=== PATIENT | male | born 1965 | race African-American/Black ===

== ENCOUNTER 2019-03-19 16:05 | Emergency (ER) | payer SELFPAY ==
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
[2019-03-19] MEDS ORDERED: Lidocaine 2% Viscous Solution 15 ML Cup PO ONE (16:47)
--- NOTE | 2019-03-19 18:26 | CR ---
HISTORY: Cough and sore throat. COMPARISON: None available. FINDINGS: AP and lateral views of the soft tissues of the neck were obtained. The airway structures are normal in appearance. The epiglottis is normal in appearance. There is no displacement of the trachea. No radiopaque foreign bodies are evident. The prevertebral soft tissues and cervical spine are normal in appearance. The cervical spine that is seen is normal in appearance. The apices of the lungs are clear. IMPRESSION: Normal two-view soft tissue examination of the neck. Dictated by Quintin Estrada MD @ Mar 19 2019 6:25PM Signed by Dr. Quintin Estrada @ Mar 19 2019 6:26PM
--- NOTE | 2019-03-19 18:26 | CR ---
INDICATION: Cough for 2 days. COMPARISON: None available. FINDINGS: PA and lateral views of the chest were obtained. The lungs are clear. No focal or diffuse infiltrates are present. The heart is normal in size. The mediastinum is normal in appearance. There is minimal scoliosis of the mid thoracic spine convex towards the right. The osseous structures are otherwise normal in appearance for the patient`s age. IMPRESSION: No active disease seen in the chest. Dictated by Quintin Estrada MD @ Mar 19 2019 6:24PM Signed by Dr. Quintin Estrada @ Mar 19 2019 6:25PM
== END 2019-03-19 18:40 | disposition home or self-care (01) ==
LOC: MW.ED 16:05
DX: M54.2 Cervicalgia (principal); R13.10 Dysphagia, unspecified; J06.9 Acute upper respiratory infection, unspecified; F17.210 Nicotine dependence, cigarettes, uncomplicated
CPT/HCPCS: 70360; 71046; 87081; 87804; 87880; 99283; A9270

== ENCOUNTER 2019-03-20 21:29 | Emergency (ER) | payer SELFPAY ==
[2019-03-20] MEDS ORDERED: Albuterol/Ipratropium 3.0-0.5 MG/3 ML Neb Soln NEB ONE (21:54)
[2019-03-20] MEDS ORDERED: methylPREDNISolone Sodium Succinate 125 MG/2 ML SDV IVPUSH ONE (21:54)
[2019-03-20] MEDS ORDERED: Sodium Chloride 0.9% 1,000 ML IV SCH (22:00)
[2019-03-20 22:45] LABS: CHLORIDE,CL 97 mmol/L (98-107); SODIUM,NA 135 mmol/L (136-148)
[2019-03-20] MEDS ORDERED: cefTRIAXone 1 GM Vial IM ONE (22:47)
[2019-03-20] MEDS ORDERED: cefTRIAXone 1 GM in Premix Bag 1 BAG IV ONE (23:07)
--- NOTE | 2019-03-20 23:11 | CR ---
Indication: Chest pain, shortness of breath Technique: Chest 1 view Comparison: March 19, 2019 Findings/Impression: Cardiovascular and mediastinum: Heart size and vasculature are normal in caliber and appearance. Mediastinum is within normal limits. Lungs and pleural space: Lungs are clear. No sign of infiltrate or mass. No sign of pleural effusion. No pneumothorax. Bones and soft tissues: Mild dextroscoliosis. No acute findings. Dictated by Rosemary Lopez MD @ Mar 20 2019 11:08PM Signed by Dr. Rosemary Lopez @ Mar 20 2019 11:09PM
--- NOTE | 2019-03-20 23:26 | EDM.PDOC ---
ED HPI GENERAL MEDICAL PROBLEM - General Chief Complaint: Respiratory Problem Stated Complaint: COUGH,SORE THROAT Time Seen by Provider: 03/20/19 23:26 Source of Information: Reports: Patient - History of Present Illness INITIAL COMMENTS - FREE TEXT/NARRATIVE: HISTORY AND PHYSICAL: History of present illness: [[place] presents with sore throat and complaint of shortness breath was provided DuoNeb and Solu-Medrol which may have alleviated symptoms are improved I also provided a gram of Rocephin,, and does have sore throat and fever although the shortness of breath is over exaggerated as on a prolonged stay Avelox by any sitting comfortably playing on his telephone however when I walked into his room he begins labored breathing and arising as if in disc comfort Is resolved after discussion of these facts however patient does have pharyngitis and will be provided antibiotic therapy Muffled voice drooling or trismus] Review of systems: As per history of present illness and below otherwise all systems reviewed and negative. Past medical history: As per history of present illness and as reviewed below otherwise noncontributory. Surgical history: As per history of present illness and as reviewed below otherwise noncontributory. Social history: No reported history of drug or alcohol abuse. Family history: As per history of present illness and as reviewed below otherwise noncontributory. Physical exam: HEENT: Atraumatic, normocephalic, pupils reactive, negative for conjunctival pallor or scleral icterus, mucous membranes moist, throat clear, neck supple, nontender, trachea midlinemod erythema no exudates Lungs: Clear to auscultation, breath sounds equal bilaterally, chest nontender. Heart: S1S2, regular, negative for clicks, rubs, or JVD. Abdomen: Soft, nondistended, nontender. Negative for masses or hepatosplenomegaly. Negative for costovertebral tenderness. Pelvis: Stable nontender. Genitourinary: Deferred. Rectal: Deferred. Extremities: Atraumatic, negative for cords or calf pain. Neurovascular unremarkable. Neuro: Awake, alert, oriented. Cranial nerves II through XII unremarkable. Cerebellum unremarkable. Motor and sensory unremarkable throughout. Exam nonfocal. Diagnostics: [CBC CMP UA ] Therapeutics: [Will saline Solu-Medrol DuoNeb 1 g Rocephin Azithromycin 500 by mouth daily Prednisone] Impression: [] acute pharyngitis Definitive disposition and diagnosis as appropriate pending reevaluation and review of above. Chest Pain Score (Numeric/FACES): 10 - Related Data Allergies Allergy/AdvReac Type Severity Reaction Status Date / Time No Known Allergies Allergy Verified 03/20/19 21:45 Home Meds: Home Meds . [No Known Home Meds] 03/19/19 [History] Past Medical History HEENT History: Reports: None Cardiovascular History: Reports: None Respiratory History: Reports: None Gastrointestinal History: Reports: None Genitourinary History: Reports: None Musculoskeletal History: Reports: None Neurological History: Reports: None Psychiatric History: Reports: None Endocrine/Metabolic History: Reports: None Hematologic History: Reports: None Immunologic History: Reports: None Oncologic (Cancer) History: Reports: None Dermatologic History: Reports: None - Past Surgical History Head Surgeries/Procedures: Reports: None HEENT Surgical History: Reports: None Cardiovascular Surgical History: Reports: None Respiratory Surgical History: Reports: None GI Surgical History: Reports: Appendectomy Male Surgical History: Reports: None Endocrine Surgical History: Reports: None Neurological Surgical History: Reports: None Musculoskeletal Surgical History: Reports: None Oncologic Surgical History: Reports: None Dermatological Surgical History: Reports: None Social & Family History - Family History Family Medical History: Noncontributory - Tobacco Use Smoking Status *Q: Current Every Day Smoker Years of Tobacco use: 10 Packs/Tins Daily: 0.3 - Caffeine Use Caffeine Use: Reports: None - Recreational Drug Use Recreational Drug Use: No ED ROS GENERAL - Review of Systems Review Of Systems: See Below ED EXAM, GENERAL - Physical Exam Exam: See Below Course - Vital Signs Last Recorded V/S: Last Vital Signs Temp 101.3 F H 03/20/19 21:42 Pulse 101 H 03/20/19 22:54 Resp 18 03/20/19 22:54 BP 119/71 03/20/19 22:54 Pulse Ox 99 03/20/19 22:54 - Orders/Labs/Meds Orders: Active Orders 24 hr Category Date Time Status EKG Documentation Completion [RC] STAT Care 03/20/19 21:55 Active RT Aerosol Therapy [RC] ASDIRECTED Care 03/20/19 21:54 Active CULTURE BLOOD [BC] Stat Lab 03/20/19 22:08 Received CULTURE BLOOD [BC] Stat Lab 03/20/19 22:23 Received UA RFX ODILIA AND CULT IF INDIC [URIN] Stat Lab 03/20/19 21:52 Ordered Sodium Chloride 0.9% [Normal Saline] 1,000 ml Med 03/20/19 22:00 Active IV STAT cefTRIAXone [Rocephin in Dextrose,Iso-Osm 1 GM/50 ML] 1 Med 03/20/19 23:07 Active gm Premix Bag 1 bag IV ONETIME Blood Culture x2 Reflex Set [OM.PC] Stat Oth 03/20/19 21:52 Ordered Medication Orders Sodium Chloride (Normal Saline) 1,000 mls @ 125 mls/hr IV STAT EDMUNDO Last Admin: 03/20/19 22:12 Dose: 125 mls/hr Ceftriaxone Sodium/Dextrose 1 (gm/ Premix) 50 mls @ 100 mls/hr IV ONETIME ONE Stop: 03/20/19 23:36 Last Admin: 03/20/19 23:12 Dose: 100 mls/hr Labs: Laboratory Tests 03/20/19 03/20/19 Range/Units 22:08 22:08 WBC 7.54 (4.0-11.0) K/uL RBC 5.58 (4.50-5.90) M/uL Hgb 15.5 (13.0-17.0) g/dL Hct 43.9 (38.0-50.0) % MCV 78.7 L (80.0-98.0) fL MCH 27.8 (27.0-32.0) pg MCHC 35.3 (31.0-37.0) g/dL RDW Std Deviation 37.6 (28.0-62.0) fl RDW Coeff of Joe 13 (11.0-15.0) % Plt Count 267 (150-400) K/uL MPV 9.60 (7.40-12.00) fL Neut % (Auto) 53.4 (48.0-80.0) % Lymph % (Auto) 30.1 (16.0-40.0) % [place] % (Auto) 15.8 H (0.0-15.0) % Eos % (Auto) 0.4 (0.0-7.0) % Baso % (Auto) 0.3 (0.0-1.5) % Neut # (Auto) 4.0 (1.4-5.7) K/uL Lymph # (Auto) 2.3 (0.6-2.4) K/uL [place] # (Auto) 1.2 H (0.0-0.8) K/uL Eos # (Auto) 0.0 (0.0-0.7) K/uL Baso # (Auto) 0.0 (0.0-0.1) K/uL Nucleated RBC % 0.0 /100WBC Nucleated RBCs # 0 K/uL Sodium 135 L (136-148) mmol/L Potassium 4.0 (3.5-5.1) mmol/L Chloride 97 L (98-107) mmol/L Carbon Dioxide 24.9 (21.0-32.0) mmol/L BUN 14 (7.0-18.0) mg/dL Creatinine 1.3 (0.8-1.3) mg/dL Est Cr Clr Drug Dosing 61.62 mL/min Estimated GFR (MDRD) > 60.0 ml/min Glucose 108 H (74-106) mg/dL Calcium 9.2 (8.5-10.1) mg/dL Total Bilirubin 1.9 H (0.2-1.0) mg/dL AST 32 (15-37) IU/L ALT 31 (14-63) IU/L Alkaline Phosphatase 83 (46-116) U/L Troponin I < 0.050 (0.000-0.056) ng/mL Total Protein 8.8 H (6.4-8.2) g/dL Albumin 4.1 (3.4-5.0) g/dL Globulin 4.7 H (2.6-4.0) g/dL Albumin/Globulin Ratio 0.9 (0.9-1.6) Meds: Medications Generic Name Dose Route Start Last Admin Trade Name Freq PRN Reason Stop Dose Admin Sodium Chloride 1,000 mls @ 125 mls/hr 03/20/19 22:00 03/20/19 22:12 Normal Saline IV 125 mls/hr STAT EDMUNDO Administration Ceftriaxone Sodium/Dextrose 1 50 mls @ 100 mls/hr 03/20/19 23:07 03/20/19 23: 12 gm/ Premix IV 03/20/19 23:36 100 mls/hr ONETIME ONE Administration Discontinued Medications Generic Name Dose Route Start Last Admin Trade Name Freq PRN Reason Stop Dose Admin Albuterol/Ipratropium 3 ml 03/20/19 21:54 03/20/19 22:10 Duoneb 3.0-0.5 Mg/3 Ml NEB 03/20/19 21:55 3 ml ONETIME ONE Administration Ceftriaxone Sodium 1 gm 03/20/19 22:47 03/20/19 23:09 Rocephin IM 03/20/19 22:48 Not Given ONETIME ONE Methylprednisolone Sodium Succinate 125 mg 03/20/19 21:54 03/20/19 22:08 Solu-Medrol IVPUSH 03/20/19 21:55 125 mg ONETIME ONE Administration Departure - Departure Time of Disposition: 23:31 Disposition: Home, Self-Care 01 Condition: Good Clinical Impression: Pharyngitis - Discharge Information Referrals: PCP,None [Primary Care Provider] - Forms: ED Department Discharge Additional Instructions: The following information is given to patients seen in the emergency department who are being discharged to home. This information is to outline your options for follow-up care. We provide all patients seen in our emergency department with a follow-up referral. The need for follow-up, as well as the timing and circumstances, are variable depending upon the specifics of your emergency department visit. If you don't have a primary care physician on staff, we will provide you with a referral. We always advise you to contact your personal physician following an emergency department visit to inform them of the circumstance of the visit and for follow-up with them and/or the need for any referrals to a consulting specialist. The emergency department will also refer you to a specialist when appropriate. This referral assures that you have the opportunity for follow-up care with a specialist. All of these measure are taken in an effort to provide you with optimal care, which includes your follow-up. Under all circumstances we always encourage you to contact your private physician who remains a resource for coordinating your care. When calling for follow-up care, please make the office aware that this follow-up is from your recent emergency room visit. If for any reason you are refused follow-up, please contact the [facility] emergency department at and asked to speak to the emergency department charge nurse. - My Orders Last 24 Hours: My Active Orders 03/20/19 21:52 UA RFX ODILIA AND CULT IF INDIC [URIN] Stat Blood Culture x2 Reflex Set [OM.PC] Stat 03/20/19 21:54 RT Aerosol Therapy [RC] ASDIRECTED 03/20/19 21:55 EKG Documentation Completion [RC] STAT 03/20/19 22:00 Sodium Chloride 0.9% [Normal Saline] 1,000 ml IV STAT 03/20/19 22:08 CULTURE BLOOD [BC] Stat 03/20/19 22:23 CULTURE BLOOD [BC] Stat 03/20/19 23:07 cefTRIAXone [Rocephin in Dextrose,Iso-Osm 1 GM/50 ML] 1 gm Premix Bag 1 bag IV ONETIME - Assessment/Plan Last 24 Hours: My Active Orders 03/20/19 21:52 UA RFX ODILIA AND CULT IF INDIC [URIN] Stat Blood Culture x2 Reflex Set [OM.PC] Stat 03/20/19 21:54 RT Aerosol Therapy [RC] ASDIRECTED 03/20/19 21:55 EKG Documentation Completion [RC] STAT 03/20/19 22:00 Sodium Chloride 0.9% [Normal Saline] 1,000 ml IV STAT 03/20/19 22:08 CULTURE BLOOD [BC] Stat 03/20/19 22:23 CULTURE BLOOD [BC] Stat 03/20/19 23:07 cefTRIAXone [Rocephin in Dextrose,Iso-Osm 1 GM/50 ML] 1 gm Premix Bag 1 bag IV ONETIME
== END 2019-03-21 00:03 | disposition home or self-care (01) ==
LOC: MW.ED 21:29
DX: J02.9 Acute pharyngitis, unspecified (principal); F17.210 Nicotine dependence, cigarettes, uncomplicated
CPT/HCPCS: 36415; 71045; 80053; 84484; 85025; 87040; 93005; 96365; 96375; 99284; J0696; J2930; J7040; J7620-GY